=== PATIENT | female | born 1950 | race Two or more races ===

== ENCOUNTER 2021-10-25 19:26 | Inpatient (IN) | payer MEDICARE, OTHER ==
[~2021-10-25] VITALS: Ht 172.7 cm; Wt 86.2 kg
--- NOTE | 2021-10-25 20:15 | NUR ---
PATIENT BIB AMBULANCE UNIT 612 FROM [facility]. PATIENT IS AMBULATORY AND CALM AND COOPERATIVE.
--- NOTE | 2021-10-25 22:09 | NUR ---
Called electronics specialist child nutrition assistant and spoke with Raymon Jean, report given.
--- NOTE | 2021-10-25 22:38 | NUR ---
UNABLE TO OBTAIN MEDICATION HX AT THIS TIME, PT DOES NOT KNOW HER PRESCRIBED MEDICATIONS.
--- NOTE | 2021-10-25 23:10 | NUR ---
Patient is medically cleared by ER MD Allen.
--- NOTE | 2021-10-25 23:10 | NUR ---
Crisis contracts specialist Art at bedside for psych evaluation.
--- NOTE | 2021-10-26 00:45 | NUR ---
Report given to ALEX Singh. Patient placed to room 37B.
--- NOTE | 2021-10-26 01:40 | NUR ---
Transported patient to MHU via wheelchair accompanied by 1RN and 1 mobile security specialist Harlan. NAD. All belongings with patient.
[2021-10-26 01:45] VITALS: BP 147/67
[2021-10-26] MEDS ORDERED: ACETAMINOPHEN 325 MG TABLET PO PRN (02:15)
[2021-10-26] MEDS ORDERED: BLOOD SUGAR DIAGNOSTIC 1 EACH STRIP VI ONE (02:15)
[2021-10-26] MEDS ORDERED: MAGNESIUM HYDROXIDE 30 ML LIQUID UDC PO PRN (02:15)
[2021-10-26] MEDS ORDERED: MAG HYDROX/AL HYDROX/SIMETH 30 ML LIQUID UDC PO PRN (02:15)
--- NOTE | 2021-10-26 04:30 | NUR ---
Received at around 0200 on a 72 hour hold for danger to others. according to the hold, Pt was threatening room mates and neighbors, threatening to blow up neighbors cars, and fighting with the police. Upon arrival, she was hyperverbal and grandiose, stating that she is "smarter than Complaint Investigations Officer Cindy". She also stated that her neighbors and the police were ganging up on her and beating her up. She went to sleep, after being interviewed, and given a snack. She was advised of her hold, and given the patients rights handbook.
--- NOTE | 2021-10-26 09:47 | NUR ---
Firearms Report: Wireless Sales Consultant completed and submitted a DOJ firearms report for 5150 danger to others certifications. A copy of report has been placed in patient chart.
[2021-10-26 10:58] VITALS: BP 156/85
--- NOTE | 2021-10-26 15:14 | NUR ---
HÉCTOR Admit Source: Pt was brought to [facility] on a 5150 hold from [facility] on a 5150 hold for a danger to others and grave disability adult. [place] [address] [place] [id number]. Pt stated she plans to return to her apartment under care of herself. Pt denied a SNF placement upon discharge. HÉCTOR will continue to work with pt, family and MD to ensure a safe and proper discharge plan.
--- NOTE | 2021-10-26 15:14 | NUR ---
HÉCTOR Initial Discharge Note: Pt was brought to [facility] on a 5150 hold from [facility] on a 5150 hold for a danger to others and grave disability adult. [place] at [address] [place] [id number]. Pt stated she plans to return to her apartment under care of herself. Pt denied a SNF placement upon discharge. HÉCTOR will continue to work with pt, family and MD to ensure a safe and proper discharge plan.
[2021-10-26 15:36] VITALS: BP 163/81
--- NOTE | 2021-10-26 15:45 | NUR ---
Received patient awake taking shower. A/O X 3 to person, place, environment. Pt. is sociable, cooperative with nursing care, calm, and compliant with medications. Patient appearance is clean. Denies pain or any discomfort. Denies SI/HI AH/VH. Requires minimal assistance with ADL. Pt. is continent with few incontinent episodes. Requires frequent prompts. Pt. is encourage to vent feelings. Fall and safety precautions implemented.
--- NOTE | 2021-10-26 18:09 | NUR ---
Patient BP is 163/81, pulse 103, Engineer Automated Equipment was informed of it.
[2021-10-26 20:00] VITALS: BP 148/77
--- NOTE | 2021-10-26 20:00 | NUR ---
B/P is now 148/92. No distress noted.
[2021-10-26] MEDS ORDERED: QUETIAPINE FUMARATE 25 MG TABLET PO SCH (21:00)
[2021-10-26] MEDS: TEMAZEPAM 7.5 MG CAPSULE PO PRN (22:05)
[2021-10-27] MEDS: LORAZEPAM 1 MG TABLET PO PRN (00:29)
--- NOTE | 2021-10-27 03:48 | NUR ---
Received to care, last night, isolative, but pleasant upon approach. compliant with medications and staff direction. PRN Restoril and Ativan were given during the night. She continues to sleep. No distress noted.
[2021-10-27 07:22] LABS: HEMATOCRIT 36.6 % (31.2-41.9); MEAN CORPUSCULAR VOLUME 84.2 fL (75.5-95.3); PLATELET COUNT (AUTO) 298 K/uL (179-408)
[2021-10-27 07:30] VITALS: BP 157/86
[2021-10-27 08:08] LABS: CREATININE 0.8 mg/dL (0.6-1.3); POTASSIUM 4.1 mmol/L (3.5-5.1)
[2021-10-27 08:23] LABS: BILIRUBIN,TOTAL 0.3 mg/dL (0.2-1.0); THYROID STIMULATING HORMONE 0.669 mIU/mL (0.358-3.740); TOTAL PROTEIN, SERUM 6.5 g/dL (6.4-8.2)
[2021-10-27] MEDS: METOPROLOL SUCCINATE XL 25 MG TAB.SR.24H PO SCH (09:12)
--- NOTE | 2021-10-27 09:29 | NUR ---
PT IS ALERT AND ORIENTEDX3. COMPLIANT WITH MEDICATIONS. PT NOTED EASILY IRRITABLE, AGITATED, AND QUITE GRANDIOSE. 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 PT ADMITS TO HAVING VISUAL HALLUCINATIONS OF DEMONS. PT IS QUITE PARANOID AND DELUSIONAL.
[2021-10-27] MEDS: QUETIAPINE FUMARATE 25 MG TABLET PO SCH ×2 (10:00→16:00)
[2021-10-27 16:00] VITALS: BP 137/71
[2021-10-27 20:00] VITALS: BP 145/64
[2021-10-27] MEDS ORDERED: QUETIAPINE FUMARATE 100 MG TABLET PO SCH (21:00)
[2021-10-28] MEDS: TEMAZEPAM 7.5 MG CAPSULE PO PRN ×2 (00:15→23:17)
--- NOTE | 2021-10-28 04:23 | NUR ---
Received to care, watching TV, isolative with peers, but pleasant when approached. Compliant with medications. Remains paranoid, easily agitated, and grandiose. States that she has the secret to everlasting life, and that she is growing younger as a result of drinking volcanic water, from [place]. Believes demons and ghosts are present on the unit. PRN Restoril was given at 0015. Slept fairly well. Became angry when staff attempted to wash her dress. She retrieved it before being washed, and put it on over the clean clothes she was wearing. As of now, she remains asleep. No distress, noted.
[2021-10-28] MEDS: QUETIAPINE FUMARATE 25 MG TABLET PO SCH ×2 (08:02→17:01)
[2021-10-28] MEDS: METOPROLOL SUCCINATE XL 25 MG TAB.SR.24H PO SCH (08:03)
[2021-10-28 08:31] VITALS: BP 134/51
[2021-10-28] MEDS ORDERED: OLANZAPINE 10 MG VIAL IM ONE (09:30)
--- NOTE | 2021-10-28 09:56 | NUR ---
Patient became agitated, aggressive, verbally abusive with staff, combative, making racial comments, delusional, disoriented. Dr. Allen watched patient's behavior and prescribed Zyprexa 10 mg IM at 09:45 am, will be monitored for effectiveness. Two nurses and one security were necessary to administer medication in a safe way, but no force was needed or applied. Medication was administer in the right deltoid. Fall and safety precautions implemented.
[2021-10-28 15:55] VITALS: BP 168/72
--- NOTE | 2021-10-28 15:56 | NUR ---
Received patient awake in her room. A/O X 2 to person, place. Pt. is demanding, needy, fixated on snacks, agitated and irritable at times, calmer after IM medication. Ambulates without assistance. Compliant with medications. Denies pain or any discomfort. Denies SI/HI AH/VH. Respirations are regular, even, and unlabored. Patient appearance is disheveled. Emotional support provided. Fall and safety precautions implemented.
[2021-10-28] MEDS: METFORMIN HCL 500 MG TABLET PO SCH (17:01)
--- NOTE | 2021-10-28 17:33 | NUR ---
Patient blood glucose is 452, Service Crew Supervisor was informed, and ordered 13 units of regular insulin once. Also patient's BP is 168/72 and pulse 94, Service Crew Supervisor was informed and aware of it as well.
[2021-10-28] MEDS ORDERED: INSULIN REGULAR, HUMAN 300 UNIT/3 ML VIAL SQ ONE (18:00)
[2021-10-28] MEDS ORDERED: INSULIN REGULAR, HUMAN 300 UNIT/3 ML VIAL SQ PRN (19:45)
[2021-10-28] MEDS ORDERED: DEXTROSE 50% 50 ML DISP.SYRIN IV PRN (19:45)
[2021-10-28 20:03] VITALS: BP 142/74
[2021-10-28] MEDS: BLOOD SUGAR DIAGNOSTIC 1 EACH STRIP VI SCH ×2 (21:00→22:09)
[2021-10-28] MEDS: QUETIAPINE FUMARATE 100 MG TABLET PO SCH (22:09)
--- NOTE | 2021-10-29 04:54 | NUR ---
GPS/NSG Patient's accucheck @[phone] four units of reg. insulin administered on the right delt., staff was from registry and was unable to co-sign.
[2021-10-29 07:30] VITALS: BP 186/69
[2021-10-29 07:55] LABS: CREATININE 0.9 mg/dL (0.6-1.3); POTASSIUM 4.7 mmol/L (3.5-5.1)
[2021-10-29] MEDS: QUETIAPINE FUMARATE 25 MG TABLET PO SCH ×2 (08:01→17:08)
[2021-10-29] MEDS: METFORMIN HCL 500 MG TABLET PO SCH ×2 (08:01→17:08)
[2021-10-29] MEDS: METOPROLOL SUCCINATE XL 25 MG TAB.SR.24H PO SCH (08:02)
[2021-10-29] MEDS ORDERED: BLOOD SUGAR DIAGNOSTIC 1 EACH STRIP VI SCH (09:00)
[2021-10-29] MEDS ORDERED: DEXTROSE 50% 50 ML DISP.SYRIN IV PRN (09:30)
[2021-10-29] MEDS ORDERED: CLONIDINE HCL 0.1 MG TABLET PO PRN (09:30)
[2021-10-29] MEDS: BLOOD SUGAR DIAGNOSTIC 1 EACH STRIP VI SCH ×3 (12:10→20:45)
[2021-10-29] MEDS: INSULIN REGULAR, HUMAN 300 UNIT/3 ML VIAL SQ PRN (12:22)
--- NOTE | 2021-10-29 12:25 | NUR ---
Patient blood glucose is 330, 12 units of regular insulin given per sliding scale.
[2021-10-29 15:05] VITALS: BP 147/68
--- NOTE | 2021-10-29 15:35 | NUR ---
Received patient sleeping in her room. A/O X 3 to person, place. Pt. is fixated on snacks, sociable, talkative, intrusive, cooperative with care and compliant with medications. Denies SI/HI AH/VH. Denies pain. Denies SOB. Ambulates independently. Pt. is encourage to verbalize concerns. Fall and safety precautions implemented.
[2021-10-29] MEDS: INSULIN REGULAR, HUMAN 300 UNITS/3 ML VIAL SQ PRN ×2 (17:56→20:48)
[2021-10-29 19:56] VITALS: BP 132/52
[2021-10-29] MEDS: QUETIAPINE FUMARATE 100 MG TABLET PO SCH (20:01)
--- NOTE | 2021-10-30 05:31 | NUR ---
GPS: Remain calm and cooperative with meds and care. no agitation noted at this time. watching tv in day room. continue plan of care.
--- NOTE | 2021-10-30 05:52 | NUR ---
patient slept 4.15 hrs through the night.
[2021-10-30] MEDS: BLOOD SUGAR DIAGNOSTIC 1 EACH STRIP VI SCH ×4 (06:18→20:37)
[2021-10-30 07:30] VITALS: BP 124/79
[2021-10-30] MEDS: METOPROLOL SUCCINATE XL 25 MG TAB.SR.24H PO SCH (08:19)
[2021-10-30] MEDS: QUETIAPINE FUMARATE 25 MG TABLET PO SCH ×2 (08:19→16:57)
[2021-10-30] MEDS: METFORMIN HCL 500 MG TABLET PO SCH ×2 (08:19→17:00)
[2021-10-30] MEDS: INSULIN REGULAR, HUMAN 300 UNIT/3 ML VIAL SQ PRN ×3 (08:20→16:58)
[2021-10-30 15:09] VITALS: BP 145/79
--- NOTE | 2021-10-30 18:39 | NUR ---
The patient remained stable. Denies SI. Denies pain. Frequent visual checks done. no distress identified during the shift. all needs attended. safety measures maintained. will endorse to the next shift for continuity of care.
[2021-10-30 20:00] VITALS: BP 131/68
[2021-10-30] MEDS: QUETIAPINE FUMARATE 100 MG TABLET PO SCH (20:36)
[2021-10-30] MEDS: INSULIN REGULAR, HUMAN 300 UNITS/3 ML VIAL SQ PRN (20:39)
[2021-10-30] MEDS: INSULIN GLARGINE,HUM 300 UNITS/3 ML CARTRIDGE SQ SCH (20:40)
[2021-10-31] MEDS: LORAZEPAM 1 MG TABLET PO PRN ×2 (05:51→11:50)
--- NOTE | 2021-10-31 06:39 | NUR ---
Patient slept 5.45 hours last night. Was anxious this AM, talking loudly. Ativan 1mg PO given and effective.
[2021-10-31] MEDS: BLOOD SUGAR DIAGNOSTIC 1 EACH STRIP VI SCH ×4 (06:47→20:51)
[2021-10-31 07:30] VITALS: BP 138/63
[2021-10-31] MEDS: QUETIAPINE FUMARATE 25 MG TABLET PO SCH ×2 (08:30→18:08)
[2021-10-31] MEDS: METFORMIN HCL 500 MG TABLET PO SCH ×2 (08:30→22:20)
[2021-10-31] MEDS: METOPROLOL SUCCINATE XL 25 MG TAB.SR.24H PO SCH (08:31)
[2021-10-31] MEDS: INSULIN REGULAR, HUMAN 300 UNIT/3 ML VIAL SQ PRN ×3 (08:32→17:46)
--- NOTE | 2021-10-31 10:25 | NUR ---
Patient requested to be seen by a resistance machine welder setter. informed Arline form the dietary, they will see the patient.
--- NOTE | 2021-10-31 13:00 | NUR ---
GPS: PT ATTENDED COURT HEARING. 14 DAY HOLD FOR PROBABLE CAUSE OF DANGER TO OTHERS AND GRAVE DISABILITY.
[2021-10-31 16:00] VITALS: BP 143/75
--- NOTE | 2021-10-31 19:00 | NUR ---
Insulin sliding scale covered during the shift, blood sugar elevated, educated on her diet. endorsed.
--- NOTE | 2021-10-31 19:00 | NUR ---
The patient was noted with screaming, agitation during the shift with PRN meds given. Need to redirected. Denies SI. Denies pain. Frequent visual checks done. no distress identified during the shift. all needs attended. safety measures maintained. will endorse to the next shift for continuity of care.
[2021-10-31 20:00] VITALS: BP 147/57
--- NOTE | 2021-10-31 20:25 | NUR ---
Unable to give 1700H-1800H due meds due to no access to omnicell.
[2021-10-31] MEDS: INSULIN REGULAR, HUMAN 300 UNITS/3 ML VIAL SQ PRN (20:54)
[2021-10-31] MEDS: INSULIN GLARGINE,HUM 300 UNITS/3 ML CARTRIDGE SQ SCH (20:55)
[2021-10-31] MEDS: QUETIAPINE FUMARATE 100 MG TABLET PO SCH (22:20)
[2021-10-31] MEDS: TEMAZEPAM 7.5 MG CAPSULE PO PRN (22:21)
[2021-11-01] MEDS: BLOOD SUGAR DIAGNOSTIC 1 EACH STRIP VI SCH ×4 (06:30→20:42)
--- NOTE | 2021-11-01 06:40 | NUR ---
Patient slept 3hrs. Noted with screaming and arguing with staff stating "This is Vilma, I can do whatever I want". BS is 235mg/dL. Denies SI. Denies pain. Frequent visual checks done. no acute distress identified during the shift. all needs attended. safety measures maintained. will endorse to the next shift for continuity of care.
[2021-11-01] MEDS: METOPROLOL SUCCINATE XL 25 MG TAB.SR.24H PO SCH (08:53)
[2021-11-01] MEDS: METFORMIN HCL 500 MG TABLET PO SCH ×2 (08:54→17:27)
[2021-11-01] MEDS: QUETIAPINE FUMARATE 25 MG TABLET PO SCH ×2 (08:54→17:27)
[2021-11-01] MEDS: INSULIN REGULAR, HUMAN 300 UNITS/3 ML VIAL SQ PRN ×2 (09:00→20:45)
--- NOTE | 2021-11-01 10:50 | NUR ---
PT NOTED PACING ON THE HALLWAY, NEEDY AND ATTENTION SEEKER. PARANOID AND SUSPICIOUS. VERBALLY ABUSIVE AT TIMES AND ARGUMENTATIVE. ABLE TO MAKE NEEDS KNOWN. PT DENIES ANY PAIN OR DISCOMFORT. COMPLIANT WITH MEDS.
[2021-11-01] MEDS: INSULIN REGULAR, HUMAN 300 UNIT/3 ML VIAL SQ PRN ×2 (12:28→17:27)
[2021-11-01] MEDS: LORAZEPAM 1 MG TABLET PO PRN (12:54)
[2021-11-01 16:00] VITALS: BP 148/77
--- NOTE | 2021-11-01 18:38 | NUR ---
PT CONTINUES TO BE LOUD, HYPERVERBAL AND EPISODE OF ANXIETY WHEN NEEDS ARE NOT MET. PT REDIRECTABLE BUT FORGETS IT IN A LONG RUN. DENIES ANY PAIN OR DISCOMFORT. PACING IN ROOM, ALONG THE HALLWAY AND TO THE ACTIVITY ROOM. EASILY GETS IRRITATED.
[2021-11-01 20:00] VITALS: BP 138/67
[2021-11-01] MEDS: QUETIAPINE FUMARATE 100 MG TABLET PO SCH (20:35)
[2021-11-01] MEDS: INSULIN GLARGINE,HUM 300 UNITS/3 ML CARTRIDGE SQ SCH (20:46)
--- NOTE | 2021-11-01 22:27 | NUR ---
PATIENT RECEIVED WONDERING THE HALLWAY. PATIENT DENIES PAIN AT THIS TIME. PATIENT IS LABILE AND NEEDY. PATIENT IN NO APPARENT DISTRESS. PATIENT COMPLAINT WITH MEDICATION. PATIENT IS UNPREDICTABLE. SAFETY MEASURES RENDERED, BED IN LOWEST POSITION AND BED LOCKED.
--- NOTE | 2021-11-02 04:04 | NUR ---
PATIENT PACING THE HALLWAY YELLING, SCREAMING. LABILE, AND DEMANDING. PATIENT WAS REDIRECTED TO HER ROOM. SHE CONTINUED TO PACE THE HALLWAY LABILE TO STAFF AND SECURITY. PATIENT STATED " IF I AM UP I WILL BE SURE TO WAKE UP EVERYBODY." PATIENT ASKING FOR ATIVAN, RENDERED ATIVAN UPON ENTERING HER ROOM PATIENT REFUSED ATIVAN 1 MG WASTED ATIVAN. PATIENT REMAINS IN HER ROOM AWAKE. SAFETY MEASURES RENDERED.
[2021-11-02] MEDS: BLOOD SUGAR DIAGNOSTIC 1 EACH STRIP VI SCH ×4 (06:38→20:07)
[2021-11-02 07:30] VITALS: BP 117/81
[2021-11-02] MEDS: METFORMIN HCL 500 MG TABLET PO SCH ×2 (08:40→17:17)
[2021-11-02] MEDS: QUETIAPINE FUMARATE 25 MG TABLET PO SCH ×3 (08:40→17:17)
[2021-11-02] MEDS: METOPROLOL SUCCINATE XL 25 MG TAB.SR.24H PO SCH (08:41)
[2021-11-02] MEDS: LORAZEPAM 1 MG TABLET PO PRN (08:43)
[2021-11-02] MEDS: INSULIN REGULAR, HUMAN 300 UNIT/3 ML VIAL SQ PRN ×4 (08:43→20:55)
--- NOTE | 2021-11-02 09:30 | NUR ---
Alert, oriented x 4. Agitated earlier with the doctor of roommate. Ativan po given. Interacts with other patients which sometimes agitates them. Redirected. Compliant with taking of medications. Singing in the hallway.
[2021-11-02 13:00] VITALS: BP 100/76
[2021-11-02 20:09] VITALS: BP 135/70
[2021-11-02] MEDS: TEMAZEPAM 7.5 MG CAPSULE PO PRN (20:50)
[2021-11-02] MEDS: QUETIAPINE FUMARATE 100 MG TABLET PO SCH (20:50)
[2021-11-02] MEDS: INSULIN GLARGINE,HUM 300 UNITS/3 ML CARTRIDGE SQ SCH (20:58)
--- NOTE | 2021-11-03 04:22 | NUR ---
Received patient in the day area, patient pleasant upon initial interaction. A&0x4. Patient able to communicate needs, noted with attention seeking behavior. Patient compliant with medications and care. Patient stays up most of the night. Offered relaxation technique (deep breathing, massage), to aid sleep. PRN temazepam given. patient showered for 1 hour. Patient request for more snacks, educated patient about diet d/t DM dx. Non-compliant with diet order. Prn ineffective as patient in and out room Safety measure in place. Needs attended and met to.
[2021-11-03] MEDS: BLOOD SUGAR DIAGNOSTIC 1 EACH STRIP VI SCH ×4 (06:52→20:35)
--- NOTE | 2021-11-03 07:30 | NUR ---
Pt received walking around the unit. Pt is yelling racial slurs and epithet at staff. Tried redirection and reorientation and reducing stimuli. Safety precautions are in place. Will continue to monitor.
[2021-11-03 08:02] VITALS: BP 136/76
[2021-11-03] MEDS: METOPROLOL SUCCINATE XL 25 MG TAB.SR.24H PO SCH (08:39)
[2021-11-03] MEDS: QUETIAPINE FUMARATE 25 MG TABLET PO SCH ×3 (08:39→16:40)
[2021-11-03] MEDS: METFORMIN HCL 500 MG TABLET PO SCH ×2 (08:39→18:25)
[2021-11-03] MEDS: INSULIN REGULAR, HUMAN 300 UNIT/3 ML VIAL SQ PRN ×3 (08:52→18:38)
--- NOTE | 2021-11-03 13:31 | NUR ---
RECEIVED A CALL FROM SOMEONE IDENTIFYING PT'S STITCHER FEEDER OF WHERE PT LIVES, BY NAME OF GEOFFREY [phone]. SHE STATES THE PT KEEPS CALLING HER OFFICE AND THE OTHER STITCHER FEEDER BY NAME OF KEITH [phone], AND LEAVES EXTREMELY AND EXCESSIVE FOUL LANGUAGE AND RACIST VOICE MESSAGES AND PHONE CALLS. PHYSICIAN RELATIONS MANAGER SPOKE TO THE PT, AND PT RESPONDED "OK, I WON'T CALL THEM EVER AGAIN. I'M JUST GOING TO [place]AR[place] ALL THEIR ASSES, SO FUCK ALL THOSE FLAT ASS PEOPLE."
[2021-11-03] MEDS: LORAZEPAM 1 MG TABLET PO PRN (13:57)
--- NOTE | 2021-11-03 15:33 | NUR ---
Pt took phone under the pretense of calling daughter and was heard by the WHITE LEAD GRINDER calling the police. Pt should make all phone calls by the nursing station going forward and the phone number should be dialed by a staff member.
[2021-11-03 16:00] VITALS: BP 135/75
[2021-11-03] MEDS ORDERED: METFORMIN HCL 500 MG TABLET PO SCH (18:00)
[2021-11-03 20:00] VITALS: BP 151/65
[2021-11-03] MEDS: QUETIAPINE FUMARATE 100 MG TABLET PO SCH (20:28)
[2021-11-03] MEDS: INSULIN REGULAR, HUMAN 300 UNITS/3 ML VIAL SQ PRN (20:37)
[2021-11-03] MEDS: INSULIN GLARGINE,HUM 300 UNITS/3 ML CARTRIDGE SQ SCH (20:40)
[2021-11-04] MEDS: BLOOD SUGAR DIAGNOSTIC 1 EACH STRIP VI SCH ×4 (06:09→21:33)
--- NOTE | 2021-11-04 06:24 | NUR ---
Remain calm and cooperative with meds and care. slept 5 hrs through the night. patient is self care. continue plan of care.
[2021-11-04 07:43] VITALS: BP 154/80
--- NOTE | 2021-11-04 09:00 | NUR ---
Pt refused insulin coverage for blood sugar 277. Agreeable to take her morning medications and metformin but not insulin injection.
[2021-11-04] MEDS: QUETIAPINE FUMARATE 25 MG TABLET PO SCH ×3 (09:57→17:24)
[2021-11-04] MEDS: METFORMIN HCL 500 MG TABLET PO SCH ×2 (09:57→17:24)
[2021-11-04] MEDS: METOPROLOL SUCCINATE XL 25 MG TAB.SR.24H PO SCH (09:58)
[2021-11-04] MEDS: INSULIN REGULAR, HUMAN 300 UNIT/3 ML VIAL SQ PRN ×3 (10:05→16:53)
--- NOTE | 2021-11-04 12:37 | NUR ---
Pt refused insulin coverage for 1130 accucheck reading of 220.
[2021-11-04 16:34] VITALS: BP 160/78
[2021-11-04] MEDS: QUETIAPINE FUMARATE 100 MG TABLET PO SCH (20:32)
[2021-11-04] MEDS: INSULIN GLARGINE,HUM 300 UNITS/3 ML CARTRIDGE SQ SCH (21:00)
--- NOTE | 2021-11-04 21:43 | NUR ---
Pt refused Insulin coverage for 2100, BSG 239. No signs of acute distress. Educated pt on risks and benefits of medication but continues to refuse. Compliant with other medications.
[2021-11-04 22:20] VITALS: BP 143/71
[2021-11-05] MEDS: TEMAZEPAM 7.5 MG CAPSULE PO PRN (00:01)
[2021-11-05] MEDS: BLOOD SUGAR DIAGNOSTIC 1 EACH STRIP VI SCH ×4 (06:43→20:55)
[2021-11-05 07:47] VITALS: BP 142/85
[2021-11-05] MEDS: METFORMIN HCL 500 MG TABLET PO SCH ×2 (09:30→18:24)
[2021-11-05] MEDS: METOPROLOL SUCCINATE XL 25 MG TAB.SR.24H PO SCH (09:30)
[2021-11-05] MEDS: QUETIAPINE FUMARATE 25 MG TABLET PO SCH ×3 (09:31→17:28)
--- NOTE | 2021-11-05 12:46 | NUR ---
Patient blood glucose is 452, Curb And Gutter Laborer was called and ordered 12 units of regular insulin, will be monitored for effectiveness.
[2021-11-05] MEDS: INSULIN REGULAR, HUMAN 300 UNIT/3 ML VIAL SQ PRN ×2 (12:51→21:03)
[2021-11-05 16:19] VITALS: BP 101/58
--- NOTE | 2021-11-05 16:22 | NUR ---
Received patient awake taking shower. A/O X 3 to person, place, situation. Pt. is sociable, cooperative with, and compliant with medications. Denies pain. Denies SI/HI AH/VH. Requires minimal assistance with ADL. Continent. Requires frequent redirection and prompts. Pt. is encourage to vent feelings. Fall and safety precautions implemented.
[2021-11-05 20:00] VITALS: BP 158/74
[2021-11-05] MEDS: QUETIAPINE FUMARATE 100 MG TABLET PO SCH (20:53)
[2021-11-05] MEDS: INSULIN GLARGINE,HUM 300 UNITS/3 ML CARTRIDGE SQ SCH (21:09)
--- NOTE | 2021-11-06 05:25 | NUR ---
received patient in the day room, alert orientedX3, patient compliant with medications. No behavioral issues noted during shift. Patient calm and quiet in her room most of the shift.
[2021-11-06] MEDS: BLOOD SUGAR DIAGNOSTIC 1 EACH STRIP VI SCH ×4 (06:35→20:44)
[2021-11-06 08:00] VITALS: BP 137/86
[2021-11-06] MEDS: METFORMIN HCL 500 MG TABLET PO SCH ×2 (09:07→17:37)
[2021-11-06] MEDS: QUETIAPINE FUMARATE 25 MG TABLET PO SCH ×3 (09:07→16:51)
[2021-11-06] MEDS: METOPROLOL SUCCINATE XL 25 MG TAB.SR.24H PO SCH (09:08)
[2021-11-06] MEDS: INSULIN REGULAR, HUMAN 300 UNIT/3 ML VIAL SQ PRN ×2 (09:09→20:46)
--- NOTE | 2021-11-06 14:50 | NUR ---
patient is loud pressure speech ,poor insight and judgement took all medication ,refused insulin sliding scale coverage ,stay in TV room most of time ,interacting well with staffs and peers,will close monitoring.
[2021-11-06 16:00] VITALS: BP 155/79
[2021-11-06 20:00] VITALS: BP 159/66
[2021-11-06] MEDS: INSULIN GLARGINE,HUM 300 UNITS/3 ML CARTRIDGE SQ SCH (20:47)
[2021-11-06] MEDS ORDERED: QUETIAPINE FUMARATE 200 MG TABLET PO SCH (21:00)
[2021-11-07 07:32] VITALS: BP 138/81
[2021-11-07 08:14] VITALS: BP 138/81
[2021-11-07] MEDS: BLOOD SUGAR DIAGNOSTIC 1 EACH STRIP VI SCH ×2 (08:14→12:18)
[2021-11-07] MEDS: METOPROLOL SUCCINATE XL 25 MG TAB.SR.24H PO SCH (08:14)
[2021-11-07] MEDS: METFORMIN HCL 500 MG TABLET PO SCH (08:15)
[2021-11-07] MEDS: QUETIAPINE FUMARATE 25 MG TABLET PO SCH ×2 (08:15→12:18)
[2021-11-07] MEDS: INSULIN REGULAR, HUMAN 300 UNIT/3 ML VIAL SQ PRN ×2 (08:16→12:24)
--- NOTE | 2021-11-07 09:16 | NUR ---
Alert, oriented x 3, intrusive to others, with multiple request, cooperative when redirected. Compliant with taking of medications
--- NOTE | 2021-11-07 14:54 | NUR ---
HÉCTOR Discharge Note: Pt will be discharged to [facility] ([phone]) [address] [address] via Ambulance transportation at 3:30PM. PHARMACY: [facility] ([phone]) [address] [place] [address]. HÉCTOR spoke with admin coordinator, Abdulaziz at the facility who states they are ready to accept the patient today. Pt is aware and agreeable with discharge plans. Pt stated to HÉCTOR she does not speak to her daughter and did not consent to contacting her. HÉCTOR notified [facility] with a voicemail regarding patients discharge plan to a [facility] facility. Pt will receive closer care with therapeutic treatment and a psychiatrist for continuation of care as [facility] stated pt will need. Pt is alert and oriented x3 (name, place and date), is unable to plan for self-care at this time; however, is willing to accept care at SNF. Pt denies any suicidal or homicidal ideation. Pt will follow-up at the facility with Psychiatrist, Dr. Gross and Software Project Manager, Dr. Sheehan. Pt presents with calm mood and congruent affect.
--- NOTE | 2021-11-07 14:55 | NUR ---
HÉCTOR Discharge Note Update: Pt will be discharged to [facility] ([phone]) [address] [facility] [address] via Ambulance transportation at 3:30PM. PHARMACY: [facility] ([phone]) [address] [place] [address]. HÉCTOR spoke with admin coordinator, Abdulaziz at the facility who states they are ready to accept the patient today. Pt is aware and agreeable with discharge plans. Pt stated to HÉCTOR she does not speak to her daughter and did not consent to contacting her. HÉCTOR notified [facility] with a voicemail regarding patients discharge plan to a residential facility. Pt will receive closer care with therapeutic treatment and a psychiatrist for [facility] of [facility] need. Pt is alert and oriented x3 (name, place and date), is unable to plan for self-care at this time; however, is willing to accept care at SNF. Pt denies any suicidal or homicidal ideation. Pt will follow-up at the facility with Psychiatrist, Dr. Sheehan and Technology Architect, Dr. Gross. Pt presents with calm mood and congruent affect.
[2021-11-07] MEDS ORDERED: METO-356 PO (15:31)
[2021-11-07] MEDS ORDERED: METF-440 PO (15:31)
[2021-11-07] MEDS ORDERED: INSU100V28 SQ ×2 (15:31)
[2021-11-07] MEDS ORDERED: DEXT50DI8 IV (15:31)
[2021-11-07] MEDS ORDERED: Insulin Glargine,Hum SQ (15:31)
--- NOTE | 2021-11-07 16:38 | NUR ---
With discharge order, facilitated to [facility]. Report given to MJ. Denies suicidal and homicidal ideation. Discharged per gurney/ambulance in fair condition not in distress, afebrile, calm and cooperative.
== END 2021-11-07 16:45 | DRG 885 ==
LOC: ER 19:32 → GPS 10-26 01:25
PROVIDERS: ADMIT Nurse Practitioner Psychiatric/Mental Health; ATTEND Nurse Practitioner Family
DX: F31.2 Bipolar disorder, current episode manic severe with psychotic features (principal); E11.65 Type 2 diabetes mellitus with hyperglycemia; E44.0 Moderate protein-calorie malnutrition; E11.42 Type 2 diabetes mellitus with diabetic polyneuropathy; E78.5 Hyperlipidemia, unspecified; Z20.822 Contact with and (suspected) exposure to COVID-19; I10 Essential (primary) hypertension; E88.09 Other disorders of plasma-protein metabolism, not elsewhere classified; Z79.84 Long term (current) use of oral hypoglycemic drugs; E11.40 Type 2 diabetes mellitus with diabetic neuropathy, unspecified; M19.90 Unspecified osteoarthritis, unspecified site; C50.912 Malignant neoplasm of unspecified site of left female breast; F29 Unspecified psychosis not due to a substance or known physiological condition; R32 Unspecified urinary incontinence; Z68.28 Body mass index [BMI] 28.0-28.9, adult; Z59.9 Problem related to housing and economic circumstances, unspecified
CPT/HCPCS: 36415; 83735; 84443; 85025; 97161; J1815; J2358